=== PATIENT | female | born 1985 | race Two or more races ===

== ENCOUNTER 2019-02-07 21:50 | Emergency (ER) | payer MEDICAID ==
[~2019-02-07] VITALS: Ht 165.1 cm; Wt 45.4 kg
[2019-02-07 22:20] VITALS: BP 141/94
== END 2019-02-08 01:29 ==
LOC: EEVIPCON 21:55 → ER 21:55
DX: T74.21XA Adult sexual abuse, confirmed, initial encounter (principal)
CPT/HCPCS: 80320